=== PATIENT | female | born 1965 | race African-American/Black ===

== ENCOUNTER 2020-12-15 20:10 | Emergency (ER) | payer BC ==
[~2020-12-15] VITALS: Ht 162.6 cm; Wt 145.5 kg
[2020-12-15] MEDS ORDERED: ACETAMINOPHEN WITH CODEINE 300/30MG TABLET PO STA (21:16)
[2020-12-15] MEDS ORDERED: CLONIDINE 0.2MG TABLET PO ONE (21:30)
[2020-12-15 22:42] LABS: BASOPHILS % 0.2 % (0.0-2.0); EOSINOPHILS % 1.3 % (0.0-5.0); HEMATOCRIT. 40.6 % (36.0-48.0); HEMOGLOBIN. 13.1 g/dL (12.0-16.0); LYMPHOCYTES % 28.9 % (20.0-50.0); MEAN CORPUSCULAR HEMOGLOBIN 26.9 pg (28.0-32.0); MEAN CORPUSCULAR VOLUME 83.3 fL (81.0-99.0); MEAN PLATELET VOLUME 7.7 fl (7.4-10.4); MONOCYTES % 6.4 % (2.0-8.0); NEUTROPHILS % 63.2 % (40.0-76.0); PLATELET 345 x1000/uL (130-400); RED BLOOD CELL COUNT 4.88 mill/uL (4.2-5.4); RED CELL DISTRIBUTION WIDTH 15.9 % (11.6-14.6)
[2020-12-15 22:49] LABS: CHLORIDE 108 mEq/L (98-107)
[2020-12-15 22:53] LABS: PARTIAL THROMBOPLASTIN TIME 30.8 sec (23.4-31.0); PROTHROMBIN TIME 10.2 sec (9.6-11.0)
[2020-12-16 00:13] VITALS: BP 147/91
== END 2020-12-16 00:05 | disposition home or self-care (01) ==
LOC: ER 20:10
DX: M79.604 Pain in right leg (principal); I89.0 Lymphedema, not elsewhere classified; I10 Essential (primary) hypertension; Z88.8 Allergy status to other drugs, medicaments and biological substances
CPT/HCPCS: 36415; 71045; 73590; 80053; 85025; 93005; 93970; 99285